=== PATIENT | male | born 2000 | race Caucasian/White ===

== ENCOUNTER 2022-03-29 06:18 | Emergency (ER) | payer SELFPAY ==
[2022-03-29 06:54] LABS: RED BLOOD COUNT 4.56 M/UL (4.20-5.50); WHITE BLOOD COUNT 6.8 K/UL (4.5-11.0)
[2022-03-29 07:26] LABS: BUN/CREATININE RATIO 16 (0-10)
[2022-03-29] MEDS ORDERED: ZOFRAN 4 MG TAB4 MG PO (07:38)
== END 2022-03-29 08:25 | disposition home or self-care (01) ==
LOC: ER1 06:18
PROVIDERS: Student in an Organized Health Care Education/Training Program
DX: U07.1 COVID-19 (principal); J45.909 Unspecified asthma, uncomplicated; Z88.0 Allergy status to penicillin; F17.210 Nicotine dependence, cigarettes, uncomplicated
CPT/HCPCS: 0240U; 80053; 85025; 96374; 96375; 99284; J1885; J2405